=== PATIENT | male | born 1955 | race Caucasian/White ===

== ENCOUNTER 2017-12-06 11:50 | Observation (INO) | payer MEDICAID, MEDICARE ==
[2017-12-06] MEDS ORDERED: NS 0.9% 1000 ML* 1,000 ML IV ONE (13:22)
--- NOTE | 2017-12-06 13:30 | ED ---
GI/ HPI - HPI Summary HPI Summary: This pt is a 62 y/o male [facility] [place] [place] bloody stools x4 days now. Pt reports that since Sunday he has had bloody stools during bowel movements. This morning he states he passed gas and had blood per rectum without stool. Denies melena or black tarry stool. Pt additionally reports left lower quadrant abd pain. Denies nausea, vomiting, chest pain, SOB, fever, chills. He denies hx of GI bleeds in the past. Pt is on anticoagulants, Xarelto. He states he has taken ibuprofen in the past few days for chronic leg and back pain. His last colonoscopy was in the 1970s and has not had one since then. PMHx includes diabetes, atrial fibrillation, HTN. He reports tobacco use, 2 packs every 3 days. - History of Current Complaint Chief Complaint: EDGIBleed Time Seen by Provider: 12/06/17 13:21 Stated Complaint: BLOOD IN STOOL Hx Obtained From: Patient Onset/Duration: Started Days Ago, Still Present Timing: Lasting Days Current Severity: Moderate Pain Intensity: 5 Location of Pain: LLQ Associated Signs and Symptoms: Positive: Bright Red Blood w/Stool, Blood w/Stool , Abdominal Pain. Negative: Hematemesis, Nausea, Vomiting, Fever, Chills, Chest Pain, Melena Aggravating Factor(s): Nothing Alleviating Factor(s): Nothing - Allergy/Home Medications Allergies/Adverse Reactions: Allergies Allergy/AdvReac Type Severity Reaction Status Date / Time No Known Allergies Allergy Verified 12/06/17 12:04 Home Medications: Home Medications Fenofibric Acid (Nf) [Fenofibric Acid] 135 mg PO DAILY 12/06/17 [History Confirmed 12/06/17] Ibuprofen TAB* [Advil TAB*] 400 mg PO DAILY PRN 12/06/17 [History Confirmed 06/20] Lisinopril TAB* [Prinivil TAB*] 40 mg PO DAILY 12/06/17 [History Confirmed 12/06] Metoprolol Succinate XL TAB* [Toprol XL TAB*] 200 mg PO DAILY 12/06/17 [History Confirmed 12/06/17] Pentoxifylline CR TAB* [TRENtal CR TAB*] 400 mg PO TID 12/06/17 [History Confirmed 12/06/17] Rivaroxaban TAB(*) [Xarelto 10 mg (*)] 20 mg PO DAILY 12/06/17 [History Confirmed 12/06/17] Simvastatin TAB(NF) [Zocor(NF)] 20 mg PO DAILY 12/06/17 [History Confirmed 12/06] PMH/Surg Hx/FS Hx/Imm Hx Endocrine/Hematology History: Reports: Hx Anticoagulant Therapy, Hx Diabetes Cardiovascular History: Reports: Hx Atrial Fibrillation, Hx Hypercholesterolemia , Hx Hypertension Denies: Hx Myocardial Infarction Neurological History: Denies: Hx CVA, Hx Transient Ischemic Attacks (TIA) Infectious Disease History: No Infectious Disease History: Denies: Traveled Outside the [place] in Last 30 Days - Family History Known Family History: Negative: Cardiac Disease - Social History Alcohol Use: None Hx Substance Use: No Substance Use Type: Reports: None Hx Tobacco Use: No Smoking Status (MU): Heavy Every Day Tobacco Smoker Amount Used/How Often: 2 packs for 3 days Review of Systems Negative: Fever, Chills Gastrointestinal: Other - bloody stools Positive: Abdominal Pain. Negative: Vomiting, Nausea Negative: dysuria, hematuria Musculoskeletal: Negative Skin: Negative Neurological: Negative All Other Systems Reviewed And Are Negative: Yes Physical Exam - Summary Physical Exam Summary: VITAL SIGNS: Reviewed. GENERAL: Patient is a well-developed and nourished male who is lying comfortable in the stretcher. Patient is not in any acute respiratory distress. HEAD AND FACE: Normocephalic and atraumatic. EYES: PERRLA, EOMI x 2, No injected conjunctiva. EARS: Hearing grossly intact. Ear canals and tympanic membranes are WNL. MOUTH: Oropharynx within normal limits. NECK: Supple, trachea is midline, no adenopathy, no JVD. CHEST: Symmetric, no tenderness at palpation LUNGS: Clear to auscultation bilaterally. No wheezing or crackles. CVS: RRR, S1 and S2 present, no murmurs or gallops appreciated. ABDOMEN: Soft, left lower quadrant tenderness. No signs of distention. Positive bowel sounds. Some guarding. No rebound and no masses palpated. No abdominal bruit or pulsations. RECTAL EXAM: normal sphincter tone, no hemorrhoids, gross blood. EXTREMITIES: FROM in all major joints, no edema, no cyanosis or clubbing. NEURO: Alert and oriented x 3. No acute neurological deficits. Speech is normal. SKIN: Dry and warm Triage Information Reviewed: Yes Vital Signs On Initial Exam: Initial Vitals Temp Pulse Resp BP Pulse Ox 97.9 F 121 20 177/109 96 12/06/17 12:00 12/06/17 12:00 12/06/17 12:00 12/06/17 12:00 12/06/17 12:00 Vital Signs Reviewed: Yes Diagnostics - Vital Signs Vital Signs Temp Pulse Resp BP Pulse Ox 12/06/17 12:00 97.9 F 121 20 177/109 96 - Laboratory Result Diagrams: 12/06/17 17:12 12/06/17 13:41 Lab Statement: Any lab studies that have been ordered have been reviewed, and results considered in the medical decision making process. - CT CT abdomen/pelvis CT Interpretation: No Acute Changes - IMPRESSION: 1. No evidence for acute finding or cause for the patient's abdominal pain is seen. 2. Right inguinal hernia containing small bowel similar to the prior study. 3. Hepatic steatosis. 4. Severe bilateral osteoarthritic change in the hips. Dr. Vallejo has reviewed this report. CT Interpretation Completed By: Radiologist - EKG 13:47 Cardiac Rate: NL - at 84 bpm EKG Rhythm: Atrial Fibrillation EKG Interpretation: No ST elevations. GIGU Course/Dx - Course Assessment/Plan: This pt is a 62 y/o male presenting to [facility] [place]/o bloody stools x4 days now. Pt reports that since Sunday he has had bloody stools during bowel movements. This morning he states he passed gas and had blood per rectum without stool. Denies melena or black tarry stool. Pt additionally reports left lower quadrant abd pain. Denies nausea, vomiting, chest pain, SOB, fever, chills. He denies hx of GI bleeds in the past. Pt is on anticoagulants, Xarelto. He states he has taken ibuprofen in the past few days for chronic leg and back pain. His last colonoscopy was in the 1970s and has not had one since then. PMHx includes diabetes, atrial fibrillation, HTN. He reports tobacco use , 2 packs every 3 days. Blood work without any significant abnormality, glucose of 105, ammonia 60. Occult blood positive. I decided to order an abdominal/pelvic CT since the patient is having left lower quadrant pain. I wanted to rule out an acute diverticulitis since he was complaining of LLQ pain. The abdominal and pelvic CT is negative for an acute pathology. In the ED course the patient was given IV fluids. The patient is hemodynamically stable and his H&H is stable. Since the rectal exam had gross blood and the patient is taking his Xarelto and ibuprofen at the same time the risk for a GI bleed increases. I discussed the case with Dr. Ding, scales inspector, who will consult for this patient. I also discussed my physical exam, findings and test results with Dr. Romo from the hospital services who accepted the patient for admission. The patient continues to be hemodynamically stable alert oriented 3. - Diagnoses Differential Diagnoses - Male: Diverticulitis, Pancreatitis Provider Diagnoses: GI bleed - Physician Notifications Discussed Care Of Patient With: Tyler Ding Time Discussed With Above Provider: 14:17 Instructed by Provider To: Other - I discussed with GI who will consult on the pt. [14:24] I discussed with Dr. Romo, hospitalist, who accepted the pt for admission. Discharge - Sign-Out/Discharge Documenting (check all that apply): Patient Departure - Admit to [facility] [place] All imaging exams completed and their final reports reviewed: Yes - Discharge Plan Condition: Stable Disposition: ADMITTED TO [facility] - Attestation Statements Document Initiated by Scribe: Yes Documenting Scribe: Caro Piper Provider For Whom Scribe is Documenting (Include Credential): Miguelito Vallejo MD Scribe Attestation: Caro Fry, scribed for Miguelito Vallejo MD on 12/06/17 at 1806.
[2017-12-06 13:51] LABS: ABS Basophils 0.1 10^3/ul (0-0.2); ABS Eosinophils 0 10^3/ul (0-0.6); ABS Lymphocytes 1.2 10^3/ul (1.0-4.8); ABS Monocytes 0.6 10^3/ul (0-0.8); ABS Neutrophils 6.1 10^3/ul (1.5-7.7); ABS Nucleated RBC 0 10^3/ul; Eosinophil % 0.3 % (0-6); Hematocrit 42 % (42-52); Hemoglobin 14.8 g/dl (14.0-18.0); Lymphocyte % 14.8 % (25-47); Mean Corpuscular HGB Conc 35 g/dl (31-36); Mean Corpuscular Hemoglobin 31 pg (27-31); Mean Corpuscular Volume 89 fL (80-94); Nucleated Red Blood Cells % 0.3; Platelet Count 177 10^3/ul (150-450); Red Blood Count 4.73 10^6/ul (4.00-5.40); Red Cell Distribution Width 14 % (10.5-15)
[2017-12-06] MEDS ORDERED: Pantoprazole IV* 40 MG IV ONE (13:55)
[2017-12-06 13:58] LABS: INR 1.19 (0.77-1.02)
[2017-12-06] MEDS ORDERED: Iodixanol* (CONTRAST) 320 MG/ML 100 ML SDV IV ONE (14:30)
--- NOTE | 2017-12-06 15:17 | RAD ---
INDICATION: Abdominal pain, left lower quadrant. COMPARISON: Comparison is made with a prior outside CT of the abdomen and pelvis from September 30, 2015. TECHNIQUE: A CT scan of the abdomen and pelvis was performed with intravenous and without oral contrast following intravenous injection of 142 ml of Visipaque 320 nonionic contrast. Contiguous axial sections were obtained from the lung bases through the symphysis pubis. Images were reconstructed in the coronal and sagittal planes. FINDINGS: LUNG BASES: There is mild right lower lobe subsegmental atelectasis. No pleural effusion is present. LIVER: The liver is decreased in attenuation consistent with fatty infiltration. No significant focal abnormality is seen. GALLBLADDER: No calcified gallstones are seen. BILE DUCTS: No intra or extrahepatic ductal distention is seen. SPLEEN: The spleen is normal in size without significant focal abnormality. PANCREAS: The pancreas is normal in size. No ductal distention or calcifications are seen. ADRENAL GLANDS: The adrenal glands are normal in size. KIDNEYS: The kidneys are normal in size. No renal calculi or hydronephrosis is seen. No significant focal renal abnormality is seen. AORTA: The aorta is normal in caliber with mild calcific plaque. LYMPH NODES: No significantly enlarged lymph nodes are seen. BOWEL: There is a small hiatal hernia. The stomach, small and large bowel appear nondistended. The appendix is not visualized. There are multiple surgical clips along the medial aspect of the cecum most consistent with a prior appendectomy. There is moderate descending and sigmoid diverticulosis without evidence for diverticulitis or colitis. There are multiple surgical clips adjacent to the sigmoid colon. In addition there is a right inguinal hernia containing small bowel this was present on the prior study. PELVIC ORGANS: No bladder wall thickening is seen. The prostate gland is normal in size. PERITONEUM: No free intraperitoneal air or fluid is seen. BONES: There is severe bilateral osteoarthritic change in the hips. No other significant focal osseous abnormalities are seen. IMPRESSION: 1. NO EVIDENCE FOR ACUTE FINDING OR CAUSE FOR THE PATIENT'S ABDOMINAL PAIN IS SEEN. 2. RIGHT INGUINAL HERNIA CONTAINING SMALL BOWEL SIMILAR TO THE PRIOR STUDY. 3. HEPATIC STEATOSIS. 4. SEVERE BILATERAL OSTEOARTHRITIC CHANGE IN THE HIPS.
[2017-12-06] MEDS ORDERED: Acetaminophen TAB* 325 MG PO PRN (15:28)
[2017-12-06] MEDS ORDERED: Ondansetron INJ* 2 MG/ML VIAL IV PRN (15:28)
[2017-12-06] MEDS ORDERED: NS 0.9% 1000 ML* 1,000 ML IV SCH (15:30)
[2017-12-06] MEDS ORDERED: PEG 3000 GI LAVAGE* 1 GALLON PO ONE (17:00)
[2017-12-06 17:21] LABS: Hematocrit 38 % (42-52); Hemoglobin 13.3 g/dl (14.0-18.0)
[2017-12-06] MEDS: Pentoxifylline CR TAB* 400 MG PO SCH (19:47)
[2017-12-06 21:24] LABS: Urine Appearance Clear; Urine Blood Negative (Negative); Urine Color Straw; Urine Ketones Negative (Negative); Urine Protein Negative (Negative); Urine Specific Gravity 1.019 (1.010-1.030); Urine Urobilinogen Negative (Negative)
[2017-12-06 21:45] LABS: Hematocrit 39 % (42-52); Hemoglobin 13.4 g/dl (14.0-18.0)
--- NOTE | 2017-12-06 22:05 | HP ---
CC: Dr. Hastings, [place] * ADMISSION HISTORY AND PHYSICAL: DATE OF ADMISSION: 12/06/17 PRIMARY CARE PROVIDER: Dr. Hastings in [place]. HEALTHCARE PROXY: His daughter and his son. CODE STATUS: Full. SOURCE OF INFORMATION: History obtained from interview with the patient and ED physician. RELIABILITY: Fair. CHIEF COMPLAINT: Blood in the stool. HISTORY OF PRESENT ILLNESS: This is a 62-year-old gentleman with past medical history of atrial fibrillation, on Xarelto, as well as chronic lower back pain for which he takes approximately 800 mg of ibuprofen daily for several months, had been in his usual state of health until approximately 4 days prior to presentation, had 1 bowel movement that had blood in it, around it and also in the toilet. He notes that it was hard, but he did not strain. On Sunday, 3 days prior to presentation, he had no bowel movements; however, the day prior to presentation he also had another bowel movement similar to the first with blood in and around his stool. Today, he had additional blood in and around the stool and in the toilet, for which he presented to the emergency room because of its continued presence and failure to resolve. He has never passed any blood without any stool and he does not have any pain in his abdomen or when defecating. He notes no straining, although he has had intermittent hard stools. Denies any nausea, vomiting or decreased appetite or blood in the stool in the past. He denies the presence of hemorrhoids. He denies any GERD or reflux, changes in his appetite, changes in his diet or changes in his medications, but he notes that 1 year ago he lost 40 pounds intentionally; however, has since regained all of that weight. He denies any night sweats or fevers. He believes his last colonoscopy was in the 1970s. While in the emergency room, he ate 2 Pop-Tarts because he was tired of waiting to find out what was going on. He has no complaints while sitting in the emergency room. PAST MEDICAL HISTORY: Includes type 2 diabetes, which appears to be diet controlled, not on any medications; atrial fibrillation, on Xarelto; chronic lower back pain; hypertension; tobacco use; hyperlipidemia. PAST SURGICAL HISTORY: He notes hole in his bowels and his bladder, which he describes as a scenario that sounds like a colovesical fistula, which was previously repaired. MEDICATIONS: Reconciled, include: 1. Ibuprofen 400 mg daily as needed. 2. Metoprolol succinate 200 mg daily. 3. Rivaroxaban 20 mg daily. 4. Lisinopril 40 mg daily. 5. Pentoxifylline CR 400 mg 3 times a day. 6. Fenofibric acid 135 mg daily. 7. Simvastatin 20 mg daily. ALLERGIES: No known drug allergies. FAMILY HISTORY: Negative for peripheral vascular disease, CVAs, or CAD in his mother or father. SOCIAL HISTORY: He smokes approximately 2 packs every 3 days. He drinks no alcohol. 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 REVIEW OF SYSTEMS: As per HPI. Otherwise, all other systems negative. Predominantly positive for bright red blood in his stool. PHYSICAL EXAMINATION GENERAL: Sitting up in bed, interactive, pleasant, in no apparent distress. VITAL SIGNS: When seen by this author, 148/86, heart rate is 77, respiratory rate is 14, he is 94% on room air, and his T-max in the emergency room is 97.9. HEENT: His oropharynx is clear. He has moist mucous membranes. His sclerae are anicteric. NECK: He has non-elevated JVD. He has no cervical or supraclavicular lymphadenopathy. LUNGS: Clear. He does have coarse breath sounds on his right without associated wheeze or rhonchi. HEART: He has a regular rate and rhythm without murmurs, rubs, or gallops. ABDOMEN: Soft, nontender, and nondistended with positive bowel sounds. EXTREMITIES: Warm with the exception of bilateral feet, which also have purplish discoloration, which he notes has been chronic. Positive peripheral pulses. NEUROLOGIC: His cranial nerves II through XII are intact. PSYCHIATRIC: There is no apparent anxiety, agitation, or depression. DIAGNOSTIC STUDIES/LAB DATA: Pertinent laboratory data: BUN is 20, creatinine is 1.06, glucose 105, lactic acid 1.7, an ammonia of 60. CRP 6.4. BUN 81. Lipase 22. INR is 1.19. His hemoglobin is 14.8 with hematocrit of 42, platelets of 177,000. CT of his abdomen and pelvis has been taken as ordered by ED physician and results are still pending. EKG notable for atrial flutter, left axis, no ST or T-wave changes. ASSESSMENT AND PLAN: This is a 62-year-old gentleman, past medical history includes atrial fibrillation, on Xarelto and chronic lower back pain for which he takes significant amount of Motrin daily, presenting with 4 days of episodic bright red blood per rectum in association with defecation. 1. GI bleed. It is lower, hemorrhoidal, is high on differential and has only association with bowel movements; however, the stool would argue against this. Painless, diverticular. His last colonoscopy was in 1970s, warrants investigation. Plan is for upper and lower endoscopy tomorrow with Dr. Ding, who I discussed this case with. Serial H and Hs until then, establish 2 IVs, n.p.o. after midnight. 2. Hypertension. Continue medications starting tomorrow. 3. Type 2 diabetes. Check hemoglobin A1c. 4. Atrial fibrillation. Continue metoprolol and hold Xarelto. 5. DVT prophylaxis: SCDs, pharmacologic withheld in the setting of active GI bleed. [id number]/[facility] #: [id number] KYLE
--- NOTE | 2017-12-06 22:46 | CONS ---
CONSULTATION REPORT: DATE OF CONSULT: 12/06/17 REQUESTING PROVIDER: Dr. Saud Romo. REASON FOR CONSULT: Hematochezia. HISTORY OF PRESENT ILLNESS: This is a pleasant 62-year-old male with a past medical history of atrial fibrillation, on Xarelto; hypercholesterolemia; hypertension and diabetes, who presented with 4 days of maroon to bright red blood from rectum. He denies any abdominal pain. He states that this has not happened in the past. He denies any martin constipation or diarrhea before this. No fever or chills. He does take significant quantities of aspirin. He takes 200 to 400 mg multiple times a day for the last 3 to 4 months. He denies any martin melena. No nausea or emesis. He states that he had a colonoscopy about 30 years ago, but does not recall having polyps were the indication for the test. He does have a history of diverticulitis that was complicated with a fistula according to the patient 20 years ago maybe around 1977, but has not had any recurrence after repair of that. No family history of inflammatory bowel disease or Crohn's. He has been on the Xarelto for over 4 years for chronic stable atrial fibrillation. He does not consume alcohol. He denies any substance abuse. He is a smoker and he smokes 2 packs every 3 days. He denies any dysphagia, odynophagia. No abdominal pain. Denies any unintentional weight loss. PAST MEDICAL HISTORY: Include atrial fibrillation, hypercholesterolemia, diabetes, and hypertension. PAST SURGICAL HISTORY: Significant for cholecystectomy, appendectomy, and complicated diverticular disease with possible resection. HOME MEDICATIONS: Include: 1. Simvastatin. 2. Rivaroxaban. 3. Pentoxifylline. 4. Metoprolol. 5. Lisinopril. 6. Ibuprofen. 7. Fenofibric acid. ALLERGIES: No known drug allergies. FAMILY HISTORY: Denies any family history of GI cancer or inflammatory bowel disease. SOCIAL HISTORY: Denies alcohol use. Current tobacco smoker, 2 packs every 3 days. REVIEW OF SYSTEMS: The remainder of the 14-point review of systems was grossly negative. PHYSICAL EXAM: Vital Signs: Blood pressure was 146/84, pulse is 78, respiratory rate is 18, temperature is 97.9, and he was 99% on room air. General: Alert and oriented x3, in no acute distress. HEENT: Atraumatic, normocephalic. Pupils are equal, round, reactive to light. Extraocular movements are intact. Conjunctivae are pink. Sclerae are anicteric. Cardiovascular: Irregular rate and rhythm. S1, S2. Respiratory: Clear to auscultation bilaterally. Abdomen is soft, obese, nontender, nondistended. Bowel sounds positive. No palpable shifting dullness. Extremities: There is extensive scaling of the bilateral lower extremities with edema. Neuro exam is nonfocal. DIAGNOSTIC STUDIES/LAB DATA: Hemoglobin is 14.8, platelet count is 177. INR is 1.19. Ammonia was 60. AST 16, ALT is 11, bilirubin 0.60. Creatinine 1.06. He had an abdominal and pelvis CT that was negative for any acute pathology. ASSESSMENT AND PLAN: This is a 62-year-old male on Xarelto therapy that is admitted for hematochezia. 1. Hematochezia. He does admit to a significant NSAID usage. We will plan upper endoscopy to rule out a brisk upper GI source. He is hemodynamically stable at this point. In addition, given the bright red blood that has been visualized, we will plan on colonoscopy as well. In the meantime, he should have an H and H every 6 hours. Keep 2 units of PRBCs on hold. He should have IV b.i.d. pantoprazole therapy. Avoid NSAID therapy at this time. I will prep him for colonoscopy tomorrow along with upper endoscopy. 2. Chronic atrial fibrillation, on Xarelto. Continue to hold Xarelto at this point. 3. Obesity. Counseled. [id number]/[facility] #: [id number] KYLE
[2017-12-07 07:46] LABS: ABS Basophils 0 10^3/ul (0-0.2); ABS Eosinophils 0.1 10^3/ul (0-0.6); ABS Lymphocytes 1.3 10^3/ul (1.0-4.8); ABS Monocytes 0.6 10^3/ul (0-0.8); ABS Neutrophils 4.8 10^3/ul (1.5-7.7); ABS Nucleated RBC 0 10^3/ul; Eosinophil % 0.9 % (0-6); Hematocrit 37 % (42-52); Lymphocyte % 19.7 % (25-47); Mean Corpuscular HGB Conc 35 g/dl (31-36); Mean Corpuscular Hemoglobin 31 pg (27-31); Mean Corpuscular Volume 90 fL (80-94); Mean Platelet Volume 9.1 um3 (7.4-10.4); Nucleated Red Blood Cells % 0.3; Platelet Count 147 10^3/ul (150-450); Red Blood Count 4.15 10^6/ul (4.00-5.40); Red Cell Distribution Width 13 % (10.5-15); White Blood Count 6.8 10^3/ul (3.5-10.8)
[2017-12-07 08:07] LABS: EGFR Non-African American 71.8 (>60)
[2017-12-07] MEDS: Lisinopril TAB* 10 MG PO SCH (08:27)
[2017-12-07] MEDS: Metoprolol Succinate XL TAB* 200 MG TAB.XL PO SCH (08:27)
[2017-12-07] MEDS: Pentoxifylline CR TAB* 400 MG PO SCH ×3 (08:27→20:37)
[2017-12-07] MEDS: FENOFIBRIC ACID 135 MG PO SCH (08:27)
[2017-12-07] MEDS ORDERED: Atorvastatin* 10 MG TAB PO SCH (09:00)
[2017-12-07] MEDS ORDERED: Midazolam* 1 MG/ML 10 ML VIAL (10 MG) ONE (16:48)
[2017-12-07] MEDS ORDERED: fentaNYL* 50 MCG/ML 2 ML VIAL (100 MCG VIAL) ONE (16:48)
--- NOTE | 2017-12-07 16:50 | ADMNOTE ---
Subjective Date of Service: 12/07/17 Interval History: Seen this AM Stool last brown, no black stools or BRBPR feels well, no pain, no CP/SOB Review of Systems - Measurements Intake and Output: Intake and Output Last 24 Hours 12/05/17 12/06/17 12/07/17 12/08/17 11:59 11:59 11:59 11:59 Intake Total 1120 0 Output Total 650 Balance 470 0 Weight 127.142 kg Intake: IV Fluids 1000 Oral 120 0 Output: Urine 650 Other: Estimated Void Medium Date of Last Bowel 12/07/17 Movement # Bowel Movements 2 Estimated Stool Amount Large # Voids 1 Objective Active Medications: Acetaminophen (Tylenol Tab*) 650 mg PO Q4H PRN PRN Reason: FEVER/PAIN Atorvastatin Calcium (Lipitor*) 10 mg PO DAILY [facility] Last Admin: 12/07/17 08:27 Dose: 10 mg Lisinopril (Prinivil Tab*) 40 mg PO DAILY [facility] Last Admin: 12/07/17 08:27 Dose: 40 mg Metoprolol Succinate (Toprol Xl Tab*) 200 mg PO DAILY [facility] Last Admin: 12/07/17 08:27 Dose: 200 mg Ondansetron HCl (Zofran Inj*) 4 mg IV Q4H PRN PRN Reason: NAUSEA/VOMITING Pentoxifylline (Trental Cr Tab*) 400 mg PO TID [facility] Last Admin: 12/07/17 13:31 Dose: 400 mg Vital Signs - 8 hr 12/07/17 11:57 Temperature 97.5 F Pulse Rate 79 Respiratory 15 Rate Blood Pressure 148/92 (mmHg) O2 Sat by Pulse 95 Oximetry Oxygen Devices in Use Now: None Appearance: sitting up in bed, NAD Eyes: No Scleral Icterus, PERRLA Ears/Nose/Mouth/Throat: NL Teeth, Lips, Gums, Clear Oropharnyx, Mucous Membranes Moist Neck: NL Appearance and Movements; NL JVP, Trachea Midline Respiratory: Symmetrical Chest Expansion and Respiratory Effort Cardiovascular: RRR Abdominal: NL Sounds; No Tenderness; No Distention Lymphatic: No Cervical Adenopathy Extremities: - - 1+ LE edema Neurological: Alert and Oriented x 3 Result Diagrams: 12/07/17 07:17 12/07/17 07:17 Microbiology and Other Data: Microbiology 12/06/17 13:33 Stool Occult Blood (MOOSE) - Final Stool Assess/Plan/Problems-Billing Assessment: 62 yo M h/o diet controlled DM2, afib, HTN p/w BRBPR - Patient Problems (1) Lower GI bleed Comment: appreciate GI consult plan for EGD/cscope today holding xarelto (2) Diabetes Comment: HbA1c 5.7% - no FSG or coverage (3) Hypertension Comment: lisinopril and metoprolol (4) Tobacco abuse Comment: nicotine inhaler (5) Atrial fibrillation Comment: metoprolol xarelto on hold in setting of bleed (6) DVT prophylaxis Comment: SCDs
[2017-12-07] MEDS ORDERED: Nicotine Inhaler* 10 MG AMP INH PRN (16:53)
[2017-12-07] MEDS ORDERED: Mouth Piece, Nicotine* 1 EACH CARTRIDGE INH PRN (16:53)
--- NOTE | 2017-12-07 18:22 | PN ---
Progress Note - Progress Note Date of Service: 12/07/17 Note: Brief GI EGD/Colon Report EGD: Normal. No fresh or old blood Colon: fresh blood in sigmoid, moderate diverticulosis. Clots washed and area extensively irrigated but no active bleeding or visible source identified. 1cm polyp in transverse removed with hot snare. Clip placed due to recent Xarelto use. No blood in transverse, right colon or Terminal ileum x10cm. Due to bleeding this colonoscopy is not sufficient for small polyp detection Rec: Clears today Hold Xarelto for 1 week if ok with Primary. Suspect this is resolving diverticular bleed. Needs to clot fully. No active bleeding now. Will need repeat colonoscopy for polyps in 3-6 months Advance diet as tolerated when H/H stable and no overt signs of loss. At that point may be d/c Call if ongoing blood loss Tyler Ding DO 12/07/17 [id number]
[2017-12-08 08:46] LABS: Hematocrit 37 % (42-52); Hemoglobin 12.6 g/dl (14.0-18.0)
[2017-12-08] MEDS: Metoprolol Succinate XL TAB* 200 MG TAB.XL PO SCH (09:24)
[2017-12-08] MEDS: Pentoxifylline CR TAB* 400 MG PO SCH (09:24)
[2017-12-08] MEDS: Lisinopril TAB* 10 MG PO SCH (09:24)
[2017-12-08] MEDS: FENOFIBRIC ACID 135 MG PO SCH (09:28)
[2017-12-08 10:14] VITALS: BP 143/91
--- NOTE | 2017-12-08 21:50 | DS ---
CC: Dr. Saud Hastings * DISCHARGE SUMMARY: DATE OF ADMISSION: 12/06/17 DATE OF DISCHARGE: 12/08/17 PRIMARY CARE PROVIDER: Dr. Saud Hastings. PRIMARY DIAGNOSIS: Lower gastrointestinal bleed, suspected diverticular. SECONDARY DIAGNOSES: Include: 1. Atrial fibrillation. 2. Diet-controlled diabetes, hemoglobin A1c at this stay is 5.7%. 3. Chronic lower back pain. 4. Hypertension. 5. Tobacco abuse. 6. Hyperlipidemia. MEDICATIONS ON DISCHARGE: Include: 1. Metoprolol succinate 200 mg daily. 2. Lisinopril 40 mg daily. 3. Pentoxifylline CR 400 mg 3 times a day. 4. Fenofibric acid 135 mg daily. 5. Simvastatin 20 mg daily. Please note the discontinuation of Xarelto, which the patient should restart in 1 week from today on 12/15/17 if there is no additional bleeding. PROCEDURES PERFORMED DURING HOSPITAL STAY: 1. Colonoscopy by Dr. Ding on 12/07/17, with the results as follows: There was fresh blood in the sigmoid with mild diverticulosis, the clots were washed and area was irrigated, but no active bleeding or visible source was identified. 1-cm polyp in the transverse colon was removed and clip was placed. The colonoscopy was not sufficient for small polyp detection. 2. EGD: Normal, no fresh or old blood. PERTINENT LABORATORY DATA: Hemoglobin A1c 5.7. Hemoglobin 14.8, decreased to 12.6 on the day of discharge. HISTORY OF PRESENT ILLNESS AND HOSPITAL COURSE: This is a 62-year-old gentleman with past medical history as outlined in the history of present illness on the day of admission, presented to the hospital 4 days with bright red blood per rectum in the setting of Xarelto use as well as Motrin use daily for several months. The patient had been asymptomatic; however, because of the continued bleeding per rectum, he presented to the emergency room. He was hemodynamically stable; however, his last colonoscopy was in , underwent upper and lower endoscopy with the results as indicated above notable for suspected diverticular bleed. The patient's Xarelto and Motrin were held. During the course of the hospital stay, he had no additional bleeding after admission other than noted during the course of the colonoscopy. The patient was tolerating soft diet at the time of discharge, ambulating with his walker without distress. There are no complications during the course of this hospital stay. FOLLOWUP INSTRUCTIONS: At followup, please: 1. The patient will need repeat colonoscopy in 3 to 6 months. 2. Restart Xarelto in 1 week if the patient does not report any additional bleeding. This was discussed with the patient and placed in his discharge summary. 3. 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 The patient is precontemplative. 4. No other specific labs or vitals that need followup. Reasons to return to the hospital include, but are not limited to, recurrent or worsening symptoms, bleeding from any source, lightheadedness, loss of consciousness or near loss of consciousness, chest pain, shortness of breath, nausea, vomiting, and inability to obtain or tolerate medications were discussed with the patient at length. He acknowledged understanding. TIME SPENT: Greater than 60 minutes were spent on the discharge of this patient , greater than half was spent [id number] with the patient. [id number]/[facility] #: [id number] MTDD
--- NOTE | 2017-12-08 23:05 | PRO ---
PROCEDURE REPORT: DATE OF PROCEDURE: 12/07/17. PROCEDURE PERFORMED: Esophagogastroduodenoscopy and complete colonoscopy to the terminal ileum with hot snare polypectomy and endoscopic clip placement. DICTATION ENDS HERE [id number]/[facility] #: [id number] MTDJanine
--- NOTE | 2017-12-08 23:13 | PRO ---
CC: Dr. Saud Hastings * DATE OF PROCEDURE: 12/07/17 - ROOM #410 PRIMARY CARE PHYSICIAN: Dr. Saud Hastings. PROCEDURE PERFORMED: Esophagogastroduodenoscopy and colonoscopy complete to the terminal ileum with hot snare polypectomy and endoscopic clip placement. INDICATION FOR PROCEDURE: Hematochezia, acute blood loss anemia. MEDICATIONS GIVEN: Include 50 mg IV midazolam, 175 mcg IV fentanyl. DESCRIPTION OF PROCEDURE: After the EGD and colonoscopy procedure including the risks, benefits, and alternatives with the risks not limited to perforation , surgery, missed lesions, and/or were explained to the patient, written consent was then obtained. IV medication was given and a bite-block was placed between the teeth. The Olympus gastroscope was passed through the patient's mouth through the upper esophageal sphincter into the tubular esophagus. The tubular esophagus was normal in appearance. The Z-line was normal. The GE junction was at 40. The scope was passed through the lower esophageal sphincter into the stomach. The stomach was grossly normal in appearance. On retroflexion, there was no evidence of hiatal hernia or lesions. The scope was then advanced to a widely patent pylorus into the duodenal bulb, into the C-loop , and the distal duodenum. These were normal in appearance as well without evidence of fresh or old blood. The scope was then removed from the patient. He was re-sedated with additional IV sedation medication and rotated. A rectal exam was performed. The rectal exam was unremarkable except for scant blood that was noted. The adult Olympus colonoscope was then inserted into the patient's rectum and advanced very carefully through the entirety of the colon to the cecum and terminal ileum. At the cecum, the cecal base was carefully inspected and normal in appearance. The terminal ileum was identified and intubated x4 to 5 cm. There was no evidence of fresh or old blood. The scope was then withdrawn from the cecum in slow fashion. On the right side of the colon including the cecum, ascending colon, transverse colon, there was no evidence of any fresh or old blood; however, a 1 cm polyp was identified. This was removed with hot snare polypectomy in entirety. An endoscopic clip was placed due to the recent Xarelto use about 48 hours prior. The scope was then continued to be removed from the patient in a slow fashion. In the descending colon, there was really no evidence of fresh or old blood; but in the sigmoid colon, he did have moderate diverticulosis coli and semi-fresh blood was noted throughout this area, was extensively irrigated. I intubated the sigmoid colon multiple times after washing and could not find any evidence of a diverticular pouch that had a vessel or was actively bleeding. At the conclusion of the procedure, I did wash the entire left side of the colon without any evidence of fresh blood. The scope was then withdrawn from the patient. Due to his prior bleeding, this colonoscopy was inadequate for polyps surveillance. He will need a repeat colonoscopy in 3 to 6 months. The scope was withdrawn from the patient. He tolerated the procedure well and returned to the recovery room in stable condition. The preparation was fair secondary to blood. IMPRESSION: 1. Complete esophagogastroduodenoscopy. 2. Normal upper endoscopy. 3. Complete colonoscopy with terminal ileal intubation. 4. Likely diverticular bleed, now resolving. 5. A 1 cm transverse polyp removed with hot snare polypectomy. 6. Fair prep secondary to blood, inadequate for polyp detection. RECOMMENDATIONS: His upper endoscopy was negative. His source was in the sigmoid colon given the semi-old blood that was noted. After extensive irrigation of this area, I was not able to find any active source or visible vessel with any of the diverticular pockets that I inspected. At the conclusion of the procedure, there was no fresh or old blood apparent. I would recommend that we hold the Xarelto for about a week. I presumed this is a diverticular bleed that is now starting to resolve. This will allow him to completely clot at this time. I discussed the case with Dr. Romo, the patient 's hospital physician as well. He will also need a repeat colonoscopy in 3 to 6 months for a full polyp detection given the blood it was not adequate for colorectal screening. I did remove the 1 cm polyp and we will follow up on the pathology results and contact the patient. [id number]/[facility] #: [id number] KYLE
== END 2017-12-08 14:20 | disposition home or self-care (01) ==
LOC: ED 11:50 → MED 15:41
PROVIDERS: ADMIT Internal Medicine; ATTEND Internal Medicine
PROC: 0DJ08ZZ Inspection of Upper Intestinal Tract, Via Natural or Artificial Opening Endoscopic (ICD-10-PCS; principal; 2017-12-07)
PROC: 0DBL8ZX Excision of Transverse Colon, Via Natural or Artificial Opening Endoscopic, Diagnostic (ICD-10-PCS; 2017-12-07)
DX: K92.2 Gastrointestinal hemorrhage, unspecified (principal); D62 Acute posthemorrhagic anemia; I48.91 Unspecified atrial fibrillation; E11.9 Type 2 diabetes mellitus without complications; M54.5 Low back pain; G89.29 Other chronic pain; I10 Essential (primary) hypertension; F17.210 Nicotine dependence, cigarettes, uncomplicated; E78.5 Hyperlipidemia, unspecified; Z79.899 Other long term (current) drug therapy; Z79.01 Long term (current) use of anticoagulants; E66.9 Obesity, unspecified; I44.4 Left anterior fascicular block; K92.1 Melena; R10.9 Unspecified abdominal pain
CPT/HCPCS: 36415; 74177; 80048; 80053; 81003; 82140; 82270; 82550; 83036; 83605; 83690; 83735; 83880; 85014; 85018; 85025; 85610; 85730; 86140; 86850; 86900; 86901; 93005; 96374; 99156; 99157; 99284; A9270-GY; G0378; J2250; J3010; Q9967

== ENCOUNTER 2019-05-13 20:08 | Emergency (ER) | payer MEDICARE ==
[2019-05-14] MEDS ORDERED: Ketorolac INJ* 15 MG/ML 1 ML VIAL IV ONE (01:05)
[2019-05-14] MEDS ORDERED: NS 0.9% 1000 ML** 1,000 ML IV ONE (01:05)
[2019-05-14] MEDS ORDERED: Ondansetron INJ* 2 MG/ML VIAL IV ONE (01:05)
[2019-05-14 01:58] LABS: ABS Lymphocytes 1.2 10^3/ul (1.0-4.8); ABS Monocytes 1.1 10^3/ul (0-0.8); ABS Neutrophils 10.1 10^3/ul (1.5-7.7); Eosinophil % 0.1 %; Hematocrit 45 % (42-52); Hemoglobin 15.2 g/dL (14.0-18.0); Lymphocyte % 9.5 %; Mean Corpuscular HGB Conc 34 g/dL (31-36); Mean Corpuscular Hemoglobin 32 pg (27-31); Mean Corpuscular Volume 92 fL (80-94); Mean Platelet Volume 9.2 fL (7.4-10.4); Platelet Count 159 10^3/uL (150-450); Red Blood Count 4.82 10^6 /uL (4.18-5.48); Red Cell Distribution Width 14 % (10-15); White Blood Count 12.4 10^3/uL (3.5-10.8)
[2019-05-14] MEDS ORDERED: Albuterol/Ipratropium NEB.SOL* Albuterol 2.5 MG/Ipratropium 0.5 MG 3 ML INH ONE (02:02)
[2019-05-14 02:03] LABS: INR 1.55 (0.82-1.09)
--- NOTE | 2019-05-14 02:09 | ED ---
GI/ HPI - HPI Summary HPI Summary: Patient is a 63 y/o M presenting to [facility] with complaints of right flank pain. He states that the pain onset this morning and denies discrete injury. Pain wraps around to his right lower back. He characterizes the pain as a soreness and rates its severity a 6/10 in the room. He has been treating the pain with acetaminophen and heating pad. Patient states that he has been SOB secondary to the pain. However, he also notes a chronic cough that has worsened over the past few days. N/V/D and fever are denied. PMHx of HTN, diabetes, HLD noted. NKDA reported. PSHx of appendectomy, gall bladder repair surgery reported. He is a current smoker, denies alcohol and other substance usage. FMHx of diabetes , cardiac disease, cancer noted. Home medications and allergies are reviewed. - History of Current Complaint Chief Complaint: EDFlankPain Time Seen by Provider: 05/14/19 01:05 Stated Complaint: RT SIDE AND BACK PAIN PER PT Hx Obtained From: Patient Onset/Duration: Started Hours Ago, Still Present Timing: Constant, Lasting Hours Current Severity: Moderate Pain Intensity: 5 Location of Pain: Flank Associated Signs and Symptoms: Positive: Flank Pain, Cough, Other: - SOB. Negative: Nausea, Vomiting, Diarrhea, Fever - Additional Pertinent History Primary Care Physician: NAYELY - Allergy/Home Medications Allergies/Adverse Reactions: Allergies Allergy/AdvReac Type Severity Reaction Status Date / Time No Known Allergies Allergy Verified 05/14/19 02:32 Home Medications: Home Medications Fenofibric Acid 135 mg CAP 135 mg PO DAILY 12/06/17 [History Confirmed 05/14/19] Lisinopril TAB* [Prinivil TAB 10 MG*] 40 mg PO DAILY 12/06/17 [History Confirmed 05/14/19] Metoprolol Succinate XL TAB* [Toprol XL TAB*] 200 mg PO DAILY 12/06/17 [History Confirmed 05/14/19] Pentoxifylline CR TAB* [Trental CR TAB*] 400 mg PO DAILY 12/06/17 [History Confirmed 05/14/19] Simvastatin TAB(NF) [Zocor 20 MG (NF)] 20 mg PO DAILY 12/06/17 [History Confirmed 05/14/19] Amoxicillin/Clavulanate TAB* [Augmentin TAB 875*] 875 mg PO BID #20 tab [Rx] Rivaroxaban TAB(*) [Xarelto 20 mg] 20 mg PO DAILY 05/14/19 [History Confirmed ] PMH/Surg Hx/FS Hx/Imm Hx Endocrine/Hematology History: Reports: Hx Anticoagulant Therapy, Hx Diabetes Cardiovascular History: Reports: Hx Atrial Fibrillation, Hx Hypercholesterolemia , Hx Hypertension Denies: Hx Myocardial Infarction History: Denies: Hx Renal Disease Sensory History: Reports: Hx Contacts or Glasses Denies: Hx Hearing Aid Opthamlomology History: Reports: Hx Contacts or Glasses Neurological History: Denies: Hx CVA, Hx Transient Ischemic Attacks (TIA) Infectious Disease History: No Infectious Disease History: Denies: Traveled Outside the [place] in Last 30 Days - Family History Known Family History: Negative: Cardiac Disease - Social History Alcohol Use: None Hx Substance Use: No Substance Use Type: Reports: None Hx Tobacco Use: No Smoking Status (MU): Light Every Day Tobacco Smoker Amount Used/How Often: 2 packs for 3 days - Additional Comments History Additional Comments: PMHx of HTN, diabetes, HLD PSHx of appendectomy, gall bladder repair surgery FMHx of diabetes, cardiac disease, cancer Review of Systems - ROS Summary Review of Systems Summary: Home Medications Medication Instructions Recorded Confirmed Type Fenofibric Acid 135 mg CAP 135 mg PO DAILY 12/06/17 05/14/19 History Lisinopril TAB* [Prinivil TAB 10 40 mg PO DAILY 12/06/17 05/14/19 History MG*] Metoprolol Succinate XL TAB* 200 mg PO DAILY 12/06/17 05/14/19 History [Toprol XL TAB*] Pentoxifylline CR TAB* [Trental CR 400 mg PO DAILY 12/06/17 05/14/19 History TAB*] Simvastatin TAB(NF) [Zocor 20 MG 20 mg PO DAILY 12/06/17 05/14/19 History (NF)] Amoxicillin/Clavulanate TAB* 875 mg PO BID #20 tab 05/14/19 Rx [Augmentin TAB 875*] Rivaroxaban TAB(*) [Xarelto 20 mg] 20 mg PO DAILY 05/14/19 05/14/19 History Negative: Fever Positive: Shortness Of Breath, Cough Negative: Vomiting, Diarrhea, Nausea Positive: flank pain All Other Systems Reviewed And Are Negative: Yes Physical Exam - Summary Physical Exam Summary: General: Well-developed, Well-nourished male. No acute distress. HEENT: Normocephalic, Atraumatic. Eyes: Conjuctiva normal, PERRL. Oropharynx: Clear, mucous membranes moist, (-) exudates. Neck: Soft, FROM, (-) lymphadenopathy, (-) thyromegaly, (-) JVD. Cardiovascular: Normal sinus rhythm, (-) murmur. Lungs: (+) wheezes, (-) rales, (-) rhonchi. Abdomen: Soft, non-tender, non-distended, (-) organomegaly, normal bowel sounds. Back: (+) CVA tenderness Extremities: No edema. Skin: Warm, dry, (-) rash. Neuro: Alert and oriented x3, moves all extremities equally. No ataxia. No gait disturbance. No sensory deficit. Normal strength, normal sensation. Psychiatric: Mood normal, affect normal Triage Information Reviewed: Yes Vital Signs On Initial Exam: Initial Vitals Temp Pulse Resp BP Pulse Ox 98.8 F 119 22 127/90 95 05/13/19 20:11 05/13/19 20:11 05/13/19 20:11 05/13/19 20:11 05/13/19 20:11 Vital Signs Reviewed: Yes Procedures - Sedation Patient Received Moderate/Deep Sedation with Procedure: No Diagnostics - Vital Signs Vital Signs Temp Pulse Resp BP Pulse Ox 05/13/19 23:25 99.8 F 50 18 127/71 97 05/13/19 20:11 98.8 F 119 22 127/90 95 - Laboratory Result Diagrams: 05/14/19 01:45 05/14/19 01:45 Lab Statement: Any lab studies that have been ordered have been reviewed, and results considered in the medical decision making process. - Radiology CXR Radiology Interpretation Completed By: ED Physician Summary of Radiographic Findings: Right lower lobe PNA, pending official report. - CT CT ABD/PEL CT Interpretation Completed By: Radiologist Summary of CT Findings: IMPRESSION: 1. There is a region of parenchymal consolidation noted in the right lung base. concerning for pneumonia. 2. There is a right inguinal hernia noted containing a nonobstructed loop of. small bowel. THIS REPORT WAS REVIEWED BY ED PHYSICIAN. GIGU Course/Dx - Course Course Of Treatment: 63-year-old male presents with right sided abdominal and flank pain. Worse when he coughs. He states he has a chronic cough but definitely worse over the last few days. Some shortness of breath today with this pain onset. Unsure if he's been febrile. Patient is a smoker. On physical exam he has decreased breath sounds bilaterally. Prolonged expiration. Mild wheezing. Laboratories demonstrate slightly elevated white count. Bilirubin. C-reactive protein. CT demonstrates pneumonia of the right lower lung. Patient given Toradol for pain. With some improvement. Started on cephalosporin and Z-Yunior for pneumonia. Follow-up with PCP. Follow up sooner for any worsening symptoms. - Diagnoses Provider Diagnoses: Right lower lobe pneumonia Discharge ED - Sign-Out/Discharge Documenting (check all that apply): Patient Departure - discharge - Discharge Plan Condition: Stable Disposition: HOME Prescriptions: Amoxicillin/Clavulanate TAB* [Augmentin TAB 875*] 875 mg PO BID #20 tab Patient Education Materials: Pneumonia (ED) Referrals: Saud Hastings MD [Primary Care Provider] - 3 Days Additional Instructions: PLEASE RETURN TO ED FOR ANY NEW OR CONCERNING SYMPTOMS. PLEASE FOLLOW UP WITH YOUR PRIMARY CARE PHYSICIAN WITHIN THREE DAYS. - Billing Disposition and Condition Condition: STABLE Disposition: Home - Attestation Statements Document Initiated by Reynaldo: Yes Documenting Scribe: JIMBO KAPOOR Provider For Whom Reynaldo is Documenting (Include Credential): LUDIN TORRES MD Scribe Attestation: JIMBO Fry, scribed for LUDIN TORRES MD on 05/16/19 at 2125. Scribe Documentation Reviewed: Yes Provider Attestation: The documentation as recorded by the JIMBO crum accurately reflects the service I personally performed and the decisions made by me, LUDIN TORRES MD Status of Scribe Document: Viewed
[2019-05-14 02:17] LABS: ALT 12 U/L (7-52); AST 14 U/L (13-39); Albumin 4.3 g/dL (3.2-5.2); Albumin/Globulin Ratio 1.3 (1-3); Alkaline Phosphatase 51 U/L (34-104); Anion Gap 10 mmol/L (2-11); BUN/Creatinine Ratio 16.4 (8-20); Blood Urea Nitrogen 19 mg/dL (6-24); C Reactive Protein 185.19 mg/L (<8.01); CO2 Carbon Dioxide 22 mmol/L (22-32); Calcium 9.8 mg/dL (8.6-10.3); Chloride 107 mmol/L (101-111); EGFR African American 77.2 (>60); EGFR Non-African American 63.8 (>60); Globulin 3.2 g/dL (2-4); Glucose 102 mg/dL (70-100); Potassium 4.2 mmol/L (3.5-5.0); Sodium 139 mmol/L (135-145); Total Protein 7.5 g/dL (6.4-8.9)
[2019-05-14 02:20] LABS: Urine Appearance Cloudy; Urine Bilirubin Negative (Negative); Urine Blood Negative (Negative); Urine Color Amber; Urine Glucose Negative (Negative); Urine Ketones Trace (Negative); Urine Nitrite Negative (Negative); Urine Protein 1+(30 mg/dL) (Negative); Urine Specific Gravity 1.036 (1.010-1.030); Urine Urobilinogen Negative (Negative)
[2019-05-14 02:29] LABS: Urine Bacteria Absent (Absent); Urine Red Blood Cell Trace(0-2/hpf) (Absent); Urine White Blood Cell Trace(0-5/hpf) (Absent)
[2019-05-14] MEDS ORDERED: Iodixanol* (CONTRAST) 320 MG/ML 100 ML SDV IV ONE (03:39)
[2019-05-14] MEDS ORDERED: cefTRIAXone(*) 2 GM in NS 0.9% 100 ML* 100 ML IVPB ONE (05:19)
[2019-05-14 06:35] VITALS: BP 155/93
== END 2019-05-14 06:35 | disposition home or self-care (01) ==
LOC: ED 20:08
DX: J18.9 Pneumonia, unspecified organism (principal); E11.9 Type 2 diabetes mellitus without complications; I48.91 Unspecified atrial fibrillation; Z79.01 Long term (current) use of anticoagulants; I10 Essential (primary) hypertension; E78.00 Pure hypercholesterolemia, unspecified; Z79.899 Other long term (current) drug therapy; F17.200 Nicotine dependence, unspecified, uncomplicated
CPT/HCPCS: 36415; 71045; 74177; 80053; 81003; 81015; 83605; 83690; 85025; 85610; 86140; 87086; 96361; 96365; 96375; 99283; A9270-GY; J0696; J1885; J2405; Q9967